=== PATIENT | male | born 1975 | race Caucasian/White ===

== ENCOUNTER 2016-11-11 19:13 | Emergency (ER) | payer OTHER ==
[~2016-11-11] VITALS: Ht 182.9 cm; Wt 154.2 kg
--- NOTE | ~2016-11-11 | CT4 ---
[facility] A Service of [facility] RADIOLOGY TEXT RESULTS PATIENT: KE CAMPOS LOCATION: SED : 79 UNIT #: [id number] AGE: [address]: GAURANG FIERRO SEX: M ORDER DR: [id number] [place] [id number] E MR#: [id number] #: [id number] NAME: KE CAMPOS : 1975 SEX: M STUDY DATE/TIME: 11/11/2016 20:18 UNIT: SED ROOM: STUDY DESCRIPTION: CT Abd and Pelv Wo Cont Attending Physician: Gaurang Fierro R.N. Ordering Physician: Gaurang Fierro R.N. MEDICAL IMAGING REPORT This report is preliminary unless electronic signature is present. EXAM CT abdomen and pelvis without contrast. HISTORY Low back pain, lower abdominal pain since yesterday, possible twisting injury. Works on car. COMPARISON CT abdomen and pelvis, 06/27/2007. TECHNIQUE Axial images performed through the abdomen and pelvis without contrast. Multiplanar reconstructed images are reviewed. This CT exam was performed with one or more of the following radiation dose reduction techniques: automatic exposure control, adjustment of mA and/or kV according to patient size, and iterative reconstruction. FINDINGS ABDOMEN: Lung bases unremarkable. Liver, spleen appear normal. Gallbladder contracted. Pancreas, adrenal glands unremarkable. Small bilateral nonobstructing renal stones. GI tract to include the appendix normal. PELVIS: Bladder is decompressed. Prostate appears normal. L5-S1 degenerative disc changes as well as L4-5 degenerative disc disease. Bilateral L5 pars defects but no significant spondylolisthesis. IMPRESSION 1. Small nonobstructing bilateral renal stones. 2. Bilateral L5 pars defects but no spondylolisthesis. There is also L4-5 and L5-S1 degenerative disc disease. [facility] A Service [facility] RADIOLOGY TEXT RESULTS PATIENT: KE CAMPOS LOCATION: SED : 79 UNIT #: [id number] AGE: [address]: GAURANG FIERRO SEX: M ORDER DR: Dictated by... Polo Workman M.D. THIS IS AN ELECTRONICALLY VERIFIED REPORT Polo Workman M.D. at 11/12/2016 6:55 PM MICHELLE/keysha TD: 11/12/2016 04:32 JOB #: [id number] MEDICAL IMAGING REPORT Page 1 of 1
[~2016-11-11 19:13] MED LIST: GENOPTIC5 ML OP; VICODIN 5/500 T1 TAB PO
[2016-11-11] MEDS ORDERED: PRAVASTATIN SOD80 MG PO (19:23)
[2016-11-11] MEDS ORDERED: NORVASC10 MG PO (19:23)
[2016-11-11 20:19] LABS: URINE APPEARANCE CLEAR; URINE BILIRUBIN NEG (NEG); URINE BLOOD NEG (NEG); URINE COLOR YELLOW; URINE GLUCOSE NEG (NORM); URINE KETONE NEG (NEG); URINE LEUKOCYTE ESTERASE NEG (NEG); URINE NITRATE NEG (NEG); URINE PROTEIN NEG (NEG); URINE SOURCE CLEAN CATCH; URINE SPECIFIC GRAVITY 1.025 (1.003-1.035); URINE UROBILINOGEN 0.2 MG/DL (NORM)
[2016-11-11 20:21] LABS: MICRO INDICATED? NO
== END 2016-11-11 21:56 | disposition home or self-care (01) ==
LOC: SED 19:13
PROVIDERS: Nurse Practitioner
DX: S39.012A Strain of muscle, fascia and tendon of lower back, initial encounter (principal); M51.86 Other intervertebral disc disorders, lumbar region; I10 Essential (primary) hypertension; E78.5 Hyperlipidemia, unspecified; F17.210 Nicotine dependence, cigarettes, uncomplicated; X50.0XXA Overexertion from strenuous movement or load, initial encounter
CPT/HCPCS: 74176; 81003; 96372; 99284; J1885